=== PATIENT | male | born 1990 | race Caucasian/White ===

== ENCOUNTER 2017-02-06 13:04 | Emergency (ER) | payer BC ==
[2017-02-06 14:01] VITALS: BP 139/71
--- NOTE | 2017-02-06 14:18 | UC ---
Ear Complaint HPI - HPI Summary HPI Summary: Pt c/o right ear pain and ringing after sticking q tip in right ear canal and noticing small amount of blood on qtip - History of Current Complaint Chief Complaint: UCEar Stated Complaint: RIGHT EAR COMPLAINT Time Seen by Provider: 02/06/17 13:57 Hx Obtained From: Patient Onset/Duration: Sudden Onset, Lasting Days, Still Present Severity Initially: Mild Severity Currently: Mild Associated Signs/Symptoms: Positive: Trauma to Ear - qtip - Allergies/Home Medications Allergies/Adverse Reactions: Allergies Allergy/AdvReac Type Severity Reaction Status Date / Time No Known Allergies Allergy Verified 02/06/17 14:01 PMH/Surg Hx/FS Hx/Imm Hx Previously Healthy: Yes - Surgical History Surgical History: Yes Surgery Procedure, Year, and Place: APPENDECTOMY, TONSILLECTOMY, FINGER TIP AMPUTATION - Family History Known Family History: Positive: Cardiac Disease - Social History Occupation: Student Lives: With Family Alcohol Use: Occasionally Substance Use Type: None Smoking Status (MU): Never Smoked Tobacco Have You Smoked in the Last Year: No - Immunization History Most Recent Tetanus Shot: 5 YEARS AGO Vaccination Up to Date: Yes Review of Systems Constitutional: Negative Skin: Negative Eyes: Negative ENT: Ear Ache Respiratory: Negative Cardiovascular: Negative Gastrointestinal: Negative Genitourinary: Negative Motor: Negative Neurovascular: Negative Musculoskeletal: Negative Neurological: Negative Psychological: Negative Is Patient Immunocompromised?: No All Other Systems Reviewed And Are Negative: Yes Physical Exam Triage Information Reviewed: Yes Appearance: Well-Appearing Vital Signs: Initial Vital Signs Temp 98.3 F 02/06/17 13:57 Pulse 67 02/06/17 13:57 Resp 14 02/06/17 13:57 BP 139/71 02/06/17 13:57 Pulse Ox 96 02/06/17 13:57 Vital Signs Reviewed: Yes Eye Exam: Normal ENT Exam: Normal Dental Exam: Normal Neck exam: Normal Respiratory Exam: Normal Cardiovascular Exam: Normal Musculoskeletal Exam: Normal Neurological Exam: Normal Psychological Exam: Normal Skin Exam: Normal Ear Complaint Course/Dx - Differential Dx/Diagnosis Differential Diagnosis/HQI/PQRI: Otitis Media, Perforated TM, URI Provider Diagnoses: right ear ache. right ear tinnitus Discharge - Discharge Plan Condition: Stable Disposition: HOME Patient Education Materials: Earache (ED), Tinnitus (ED) Referrals: Etsuardo Ovalle DO [Primary Care Provider] - If Needed
== END 2017-02-06 14:43 | disposition home or self-care (01) ==
LOC: UCCORT 13:04
DX: H92.01 Otalgia, right ear (principal); H93.11 Tinnitus, right ear
CPT/HCPCS: 99211; G0463

== ENCOUNTER 2018-07-16 15:23 | Emergency (ER) | payer BC ==
[2018-07-16 16:02] VITALS: BP 132/80
--- NOTE | 2018-07-28 14:50 | UC ---
Eye Complaint HPI - HPI Summary HPI Summary: 28 -year-old male who has had a watery right eye over the past couple of days. He denies any purulent drainage. - History of Current Complaint Chief Complaint: UCEye Stated Complaint: RIGHT EYE Time Seen by Provider: 07/16/18 16:06 Hx Obtained From: Patient Onset/Duration: Gradual Onset Timing: Constant Severity Initially: Mild Severity Currently: Mild Pain Intensity: 2 Pain Scale Used: 0-10 Numeric Location of Injury: Other - No injury Aggravating Factor(s): Light - He states his eye is mildly sensitive to light. He denies any pain or throbbing. Alleviating Factor(s): Nothing Associated Signs And Symptoms: Positive: Drainage (Clear) - Allergies/Home Medications Allergies/Adverse Reactions: Allergies Allergy/AdvReac Type Severity Reaction Status Date / Time No Known Allergies Allergy Verified 07/16/18 16:02 PMH/Surg Hx/FS Hx/Imm Hx Previously Healthy: Yes - Surgical History Surgical History: Yes Surgery Procedure, Year, and Place: APPENDECTOMY, TONSILLECTOMY, FINGER TIP AMPUTATION - Family History Known Family History: Positive: None, Cardiac Disease - Social History Alcohol Use: Occasionally Substance Use Type: None Smoking Status (MU): Never Smoked Tobacco Have You Smoked in the Last Year: No - Immunization History Most Recent Tetanus Shot: 5 YEARS AGO Vaccination Up to Date: Yes Review of Systems All Other Systems Reviewed And Are Negative: Yes Eyes: Positive: Drainage - Clear eye drainage. Is Patient Immunocompromised?: No Physical Exam Triage Information Reviewed: Yes Appearance: Well-Appearing, No Pain Distress, Well-Nourished Vital Signs: Initial Vital Signs Temp 97.9 F 07/16/18 15:59 Pulse 57 07/16/18 15:59 Resp 16 07/16/18 15:59 BP 132/80 07/16/18 15:59 Pulse Ox 99 07/16/18 15:59 Vital Signs Reviewed: Yes Eyes: Positive: Conjunctiva Inflamed, Discharge - Or drainage. ENT: Positive: Normal ENT inspection, Hearing grossly normal, Pharynx normal, Nasal drainage, TMs normal, Uvula midline Neck: Positive: Supple, Nontender, No Lymphadenopathy Respiratory: Positive: Lungs clear, Normal breath sounds, No respiratory distress, No accessory muscle use Cardiovascular: Positive: RRR, No Murmur, Pulses Normal, Brisk Capillary Refill Skin: Positive: Rashes - Patient has a mildly painful rash behind his right ear which has had some drainage and is quite itchy. Eye Complaint Course/Dx - Course Course Of Treatment: Patient is comfortable here because he has the rash which has some drainage of going to start him on comparison. I'm not really sure that his conjunctivitis is bacterial however of going to treat him with tobramycin and if no improvement over the next 2 or 3 days and he can follow up with his primary care provider - Differential Dx/Diagnosis Provider Diagnosis: Impetigo, Conjunctivitis Discharge - Sign-Out/Discharge Documenting (check all that apply): Patient Departure All imaging exams completed and their final reports reviewed: No Studies - Discharge Plan Condition: Fair Disposition: HOME Prescriptions: Mupirocin 2% OINT* [Bactroban 2 % Oint*] 1 applic TOPICAL BID #1 tube Tobramycin 0.3% OPHTH.ASHLEY* 1 drop LEFT EYE Q4H #1 btl Patient Education Materials: Impetigo (DC), Conjunctivitis (ED) Referrals: Stewart Ndiaye DO [Primary Care Provider] - Additional Instructions: Good handwashing, apply the cream to rash behind the ear twice a day. Follow- up with your primary care provider if no improvement in 3 or 4 days. Follow-up with an career developer in 2 days if no improvement. No contact lens use until the redness is cleared. - Billing Disposition and Condition Condition: FAIR Disposition: Home
== END 2018-07-16 16:26 | disposition home or self-care (01) ==
LOC: UCCORT 15:23
DX: H10.31 Unspecified acute conjunctivitis, right eye (principal); L01.00 Impetigo, unspecified; Z89.029 Acquired absence of unspecified finger(s)
CPT/HCPCS: 99212; G0463